=== PATIENT | male | born 1975 | race Caucasian/White ===

== ENCOUNTER 2019-12-18 23:48 | Emergency (ER) | payer MEDICAID, OTHER ==
[~2019-12-18] VITALS: Ht 170.2 cm; Wt 77.0 kg
[2019-12-19] MEDS ORDERED: KETOROLAC 30MG/ML VIAL IM ONE (00:30)
[2019-12-19 01:03] VITALS: BP 119/79
== END 2019-12-19 01:05 | disposition home or self-care (01) ==
LOC: ER 23:48
DX: G89.29 Other chronic pain (principal); M54.5 Low back pain; M19.90 Unspecified osteoarthritis, unspecified site; M51.36 Other intervertebral disc degeneration, lumbar region; F12.10 Cannabis abuse, uncomplicated; Z88.0 Allergy status to penicillin
CPT/HCPCS: 96372; 99283; J1885

== ENCOUNTER 2019-12-19 19:43 | Emergency (ER) | payer MEDICAID ==
[~2019-12-19] VITALS: Ht 165.1 cm; Wt 94.0 kg
[2019-12-19] MEDS ORDERED: KETOROLAC 30MG/ML VIAL IV STA (20:31)
[2019-12-19] MEDS ORDERED: SODIUM CHLORIDE 0.9% 1,000 ML IV ONE ×2 (20:31→23:00)
[2019-12-19 21:21] LABS: CHLORIDE 104 mEq/L (98-107)
[2019-12-19 21:26] LABS: ETHANOL BLOOD < 10 mg/dL
[2019-12-19] MEDS ORDERED: LORAZEPAM 0.5MG TABLET PO ONE (23:00)
[2019-12-19 23:43] LABS: BASOPHILS % 0.7 % (0.0-2.0); HEMATOCRIT. 42.6 % (42.0-52.0); HEMOGLOBIN. 14.7 g/dL (14.0-18.0); LYMPHOCYTES % 22.5 % (20.0-50.0); MEAN CORPUSCULAR HEMOGLOBIN 31.3 pg (28.0-32.0); MEAN CORPUSCULAR VOLUME 90.4 fL (80.0-94.0); MEAN PLATELET VOLUME 7.7 fl (7.4-10.4); MONOCYTES % 8.6 % (2.0-8.0); NEUTROPHILS % 66.2 % (40.0-76.0); PLATELET 211 x1000/uL (130-400); RED BLOOD CELL COUNT 4.71 mill/uL (4.7-6.1); RED CELL DISTRIBUTION WIDTH 13.3 % (11.6-14.6)
[2019-12-20 00:01] LABS: CLARITY URINE CLEAR (CLEAR); COLOR URINE YELLOW (YELLOW); KETONES URINE 1+ (NEGATIVE); LEUKOCYTE ESTERASE URINE NEGATIVE (NEGATIVE); NITRITE URINE NEGATIVE (NEGATIVE); OCCULT BLOOD URINE NEGATIVE (NEGATIVE); PROTEIN URINE NEGATIVE (NEGATIVE); SPECIFIC GRAVITY URINE 1.016 (1.005-1.030); UROBILINOGEN URINE 0.2 E.U./dL (0.2-1.0)
[2019-12-20 00:15] LABS: CANNABINOID URINE SCREEN PRESUMTIVE POSITIVE (NEGATIVE); OPIATES URINE SCREEN PRESUMTIVE POSITIVE (NEGATIVE)
[2019-12-20] MEDS ORDERED: ARIPIPRAZOLE 10MG TABLET PO ONE (00:15)
[2019-12-20 00:17] LABS: *AMPHETAMINES SCREEN URINE PRESUMTIVE POSITIVE (NEGATIVE); *BARBITURATES SCREEN URINE NEGATIVE (NEGATIVE); *BENZODIAZEPINES SCREEN URINE NEGATIVE (NEGATIVE); *COCAINE SCREEN URINE NEGATIVE (NEGATIVE)
[2019-12-20 00:18] LABS: METHADONE URINE SCREEN NEGATIVE (NEGATIVE); PHENCYCLIDINE URINE SCREEN NEGATIVE (NEGATIVE)
[2019-12-20] MEDS ORDERED: ARIPIPRAZOLE 5MG TABLET PO ONE (00:30)
[2019-12-20 01:40] VITALS: BP 121/74
== END 2019-12-20 01:41 | disposition home or self-care (01) ==
LOC: ER 19:43
DX: M54.5 Low back pain (principal); T43.621A Poisoning by amphetamines, accidental (unintentional), initial encounter; R44.3 Hallucinations, unspecified; F15.188 Other stimulant abuse with other stimulant-induced disorder; F12.90 Cannabis use, unspecified, uncomplicated; F11.10 Opioid abuse, uncomplicated; F16.10 Hallucinogen abuse, uncomplicated; Y92.89 Other specified places as the place of occurrence of the external cause
CPT/HCPCS: 36415; 80053; 80305; 80320; 81003; 83605; 84443; 85025; 85610; 85651; 87040; 96374; 99283; J1885; J7030; G0480

== ENCOUNTER 2019-12-20 15:43 | Emergency (ER) | payer MEDICAID ==
[~2019-12-20] VITALS: Ht 165.1 cm; Wt 94.0 kg
[2019-12-20 16:07] VITALS: BP 122/85
== END 2019-12-20 22:37 | disposition left against medical advice (07) ==
LOC: ER 15:43
DX: Z53.21 Procedure and treatment not carried out due to patient leaving prior to being seen by health care provider (principal)

== ENCOUNTER 2022-07-29 14:11 | Emergency (ER) | payer MEDICAID, OTHER ==
[~2022-07-29] VITALS: Ht 167.6 cm; Wt 91.0 kg
[2022-07-29] MEDS ORDERED: ACETAMINOPHEN 325MG TABLET PO ONE (16:15)
[2022-07-29 17:26] VITALS: BP 123/65
== END 2022-07-29 17:30 | disposition home or self-care (01) ==
LOC: ER 14:11
DX: S60.222A Contusion of left hand, initial encounter (principal); X58.XXXA Exposure to other specified factors, initial encounter; Z72.89 Other problems related to lifestyle; Y93.89 Activity, other specified; Y92.89 Other specified places as the place of occurrence of the external cause
CPT/HCPCS: 73130; 99283

== ENCOUNTER 2022-08-02 19:45 | Emergency (ER) | payer OTHER ==
[~2022-08-02] VITALS: Ht 167.6 cm; Wt 88.0 kg
[2022-08-02] MEDS ORDERED: HYDROCODONE/ACETAMINOPHEN 5/325MG TABLET PO ONE (22:30)
[2022-08-02] MEDS ORDERED: CLINDAMYCIN 600MG PREMIX 50 ML IV NR (23:39)
[2022-08-02] MEDS ORDERED: CLINDAMYCIN 600 MG in DEXTROSE 5% WATER 50 ML IV ONE (23:45)
[2022-08-02] MEDS ORDERED: CLIN-194 MT (23:59)
[2022-08-03] MEDS ORDERED: CLINDAMYCIN HCL 150MG CAPSULE PO SCH
[2022-08-03 01:08] VITALS: BP 112/75
== END 2022-08-03 00:17 | disposition home or self-care (01) ==
LOC: ER 19:45
DX: L03.114 Cellulitis of left upper limb (principal); M19.90 Unspecified osteoarthritis, unspecified site; F41.9 Anxiety disorder, unspecified; F20.9 Schizophrenia, unspecified; Z88.0 Allergy status to penicillin
CPT/HCPCS: 73130; 99283; J3490; J7060

== ENCOUNTER 2022-08-04 13:06 | Emergency (ER) | payer OTHER ==
[~2022-08-04 13:06] MED LIST: CLIN-194 MT
== END 2022-08-04 13:52 | disposition left against medical advice (07) ==
LOC: ER 13:36
DX: Z53.21 Procedure and treatment not carried out due to patient leaving prior to being seen by health care provider (principal)

== ENCOUNTER 2022-08-08 18:07 | Emergency (ER) | payer OTHER ==
[~2022-08-08] VITALS: Ht 167.6 cm; Wt 91.0 kg
[2022-08-08 18:25] VITALS: BP 139/94
== END 2022-08-08 20:00 | disposition left against medical advice (07) ==
LOC: ER 18:07
DX: Z53.21 Procedure and treatment not carried out due to patient leaving prior to being seen by health care provider (principal)

== ENCOUNTER 2022-09-19 12:36 | Emergency (ER) | payer OTHER ==
[~2022-09-19] VITALS: Ht 167.6 cm; Wt 82.0 kg
[2022-09-19 12:43] VITALS: BP 164/96
[2022-09-19] MEDS ORDERED: CLOT45CR62 VG ×2 (16:34)
[2022-09-19] MEDS ORDERED: CLIN-194 MT (16:34)
[2022-09-19] MEDS ORDERED: CLOT15CR27 TP (16:34)
[2022-09-19] MEDS ORDERED: TOPUD PO (16:42)
[2022-09-19] MEDS ORDERED: IBUP-2028 MT (16:42)
== END 2022-09-19 17:07 | disposition home or self-care (01) ==
LOC: ER 12:36
DX: B35.3 Tinea pedis (principal); F41.9 Anxiety disorder, unspecified; M19.90 Unspecified osteoarthritis, unspecified site; F20.9 Schizophrenia, unspecified; Z88.0 Allergy status to penicillin
CPT/HCPCS: 99283

== ENCOUNTER 2022-10-06 13:15 | Emergency (ER) | payer OTHER ==
[~2022-10-06] VITALS: Ht 167.6 cm; Wt 81.0 kg
[~2022-10-06 13:15] MED LIST changes: +CLOT15CR27 TP; +IBUP-2028 MT; +TOPUD PO
[2022-10-06] MEDS ORDERED: NAPR500T7 MT (15:24)
[2022-10-06] MEDS ORDERED: ACET-2708 MT (15:24)
[2022-10-06] MEDS ORDERED: IBUPROFEN 800MG TABLET PO ONE (15:30)
[2022-10-06 15:34] VITALS: BP 110/60
== END 2022-10-06 15:38 | disposition home or self-care (01) ==
LOC: ER 13:27
DX: S39.012A Strain of muscle, fascia and tendon of lower back, initial encounter (principal); W18.39XA Other fall on same level, initial encounter; Y93.89 Activity, other specified; Y92.89 Other specified places as the place of occurrence of the external cause; Y99.8 Other external cause status; F41.9 Anxiety disorder, unspecified; F20.9 Schizophrenia, unspecified; Z79.899 Other long term (current) drug therapy; Z88.0 Allergy status to penicillin
CPT/HCPCS: 99282

== ENCOUNTER 2022-11-23 08:25 | Emergency (ER) | payer MEDICAID, OTHER ==
[~2022-11-23] VITALS: Ht 167.6 cm; Wt 85.0 kg
[~2022-11-23 08:25] MED LIST changes: +ACET-2708 MT; +NAPR500T7 MT
[2022-11-23 08:36] VITALS: BP 136/85
[2022-11-23] MEDS ORDERED: HYDROCODONE/ACETAMINOPHEN 5/325MG TABLET PO ONE (10:00)
[2022-11-23] MEDS ORDERED: PREDNISONE 20MG TABLET PO ONE (10:00)
[2022-11-23] MEDS ORDERED: KETOROLAC 60MG/2ML VIAL IM ONE (10:00)
[2022-11-23] MEDS ORDERED: NAPR500T7 MT (10:52)
[2022-11-23] MEDS ORDERED: P20 MT (10:52)
== END 2022-11-23 11:27 | disposition home or self-care (01) ==
LOC: ER 08:25
DX: G89.29 Other chronic pain (principal); M54.50 Low back pain, unspecified; M62.838 Other muscle spasm; F41.9 Anxiety disorder, unspecified; F20.9 Schizophrenia, unspecified; M19.90 Unspecified osteoarthritis, unspecified site; Z88.0 Allergy status to penicillin
CPT/HCPCS: 96372; 99283; J1885; J7512

== ENCOUNTER 2022-11-28 16:42 | Emergency (ER) | payer MEDICAID ==
[~2022-11-28] VITALS: Ht 167.6 cm; Wt 83.4 kg
[~2022-11-28 16:42] MED LIST changes: +P20 MT
[2022-11-28 16:49] VITALS: BP 136/84
[2022-11-28] MEDS ORDERED: NAPR-677 MT (17:53)
[2022-11-28] MEDS ORDERED: LIDO700A30 TP (17:53)
[2022-11-28] MEDS ORDERED: KETOROLAC 60MG/2ML VIAL IM ONE (20:00)
== END 2022-11-28 20:23 | disposition home or self-care (01) ==
LOC: ER 16:42
DX: G89.29 Other chronic pain (principal); M54.50 Low back pain, unspecified; F20.9 Schizophrenia, unspecified; M19.90 Unspecified osteoarthritis, unspecified site; F41.9 Anxiety disorder, unspecified; Z86.19 Personal history of other infectious and parasitic diseases; Z88.0 Allergy status to penicillin
CPT/HCPCS: 99281; J1885

== ENCOUNTER 2022-12-20 23:57 | Emergency (ER) | payer MEDICAID ==
[~2022-12-20] VITALS: Ht 165.1 cm; Wt 83.5 kg
[~2022-12-20 23:57] MED LIST changes: +LIDO700A30 TP; +NAPR-677 MT
[2022-12-21 00:11] VITALS: BP 145/96
[2022-12-21] MEDS ORDERED: RISPERIDONE 1MG TABLET PO STA (01:41)
[2022-12-21] MEDS ORDERED: DEXAMETHASONE 4MG TABLET PO ONE (01:45)
[2022-12-21] MEDS ORDERED: KETOROLAC 60MG/2ML VIAL IM ONE (01:45)
[2022-12-21] MEDS ORDERED: CYCL10TA21 MT (01:47)
[2022-12-21] MEDS ORDERED: NAPR500T7 MT (01:47)
== END 2022-12-21 02:00 | disposition home or self-care (01) ==
LOC: ER 23:57
DX: M54.50 Low back pain, unspecified (principal); G89.29 Other chronic pain; M54.30 Sciatica, unspecified side; F41.9 Anxiety disorder, unspecified; M19.90 Unspecified osteoarthritis, unspecified site; F20.9 Schizophrenia, unspecified; Z87.828 Personal history of other (healed) physical injury and trauma; Z88.0 Allergy status to penicillin
CPT/HCPCS: 99281; J1885; J8540

== ENCOUNTER 2023-02-24 16:46 | Emergency (ER) | payer MEDICAID, OTHER ==
[~2023-02-24] VITALS: Ht 165.1 cm; Wt 88.0 kg
[~2023-02-24 16:46] MED LIST changes: +CYCL10TA21 MT
[2023-02-24] MEDS ORDERED: DEXAMETHASONE 4MG/ML 1ML VIAL IM ONE (19:30)
[2023-02-24] MEDS ORDERED: KETOROLAC 30MG/ML VIAL IM ONE (19:30)
[2023-02-24] MEDS ORDERED: CYCLOBENZAPRINE 10MG TABLET PO ONE (19:30)
[2023-02-24 20:42] VITALS: BP 152/80
== END 2023-02-24 21:50 | disposition home or self-care (01) ==
LOC: ER 16:46
DX: M54.59 Other low back pain (principal)
CPT/HCPCS: 96372; 99284; J1100; J1885; Z7610

== ENCOUNTER 2023-04-09 15:51 | Emergency (ER) | payer MEDICAID, OTHER ==
[~2023-04-09] VITALS: Ht 167.6 cm; Wt 100.0 kg
[2023-04-09 16:16] VITALS: BP 137/73
[2023-04-09] MEDS ORDERED: GABA-532 MT (16:59)
[2023-04-09] MEDS ORDERED: DICL75TA5 MT (16:59)
[2023-04-09] MEDS ORDERED: KETOROLAC 60MG/2ML VIAL IM ONE (17:00)
[2023-04-09] MEDS ORDERED: HYDROCODONE/ACETAMINOPHEN 5/325MG TABLET PO ONE (17:00)
== END 2023-04-09 17:48 | disposition home or self-care (01) ==
LOC: ER 15:51
DX: M54.50 Low back pain, unspecified (principal); Z88.0 Allergy status to penicillin; Z79.899 Other long term (current) drug therapy; Z86.59 Personal history of other mental and behavioral disorders; Z98.890 Other specified postprocedural states
CPT/HCPCS: 99283

== ENCOUNTER 2023-06-04 22:06 | Emergency (ER) | payer MEDICAID, OTHER ==
[~2023-06-04] VITALS: Ht 165.1 cm; Wt 83.0 kg
[~2023-06-04 22:06] MED LIST changes: +DICL75TA5 MT; +GABA-532 MT
[2023-06-04 22:46] VITALS: BP 113/73; PULSE 82; RESP 17; TEMP 97.9; O2SAT 97
[2023-06-05] MEDS ORDERED: KETOROLAC 30MG/ML VIAL IM ONE (00:15)
[2023-06-05] MEDS ORDERED: NAPR-677 MT (01:16)
== END 2023-06-05 09:00 | disposition home or self-care (01) ==
LOC: ER 22:06
DX: S70.01XA Contusion of right hip, initial encounter (principal); F12.10 Cannabis abuse, uncomplicated; Z98.890 Other specified postprocedural states; V19.9XXA Pedal cyclist (driver) (passenger) injured in unspecified traffic accident, initial encounter; Y93.89 Activity, other specified; Y92.89 Other specified places as the place of occurrence of the external cause; Y99.8 Other external cause status; Z88.0 Allergy status to penicillin; Z86.59 Personal history of other mental and behavioral disorders
CPT/HCPCS: 99283; 73522; J1885

== ENCOUNTER 2023-08-07 15:12 | Emergency (ER) | payer MEDICAID, OTHER ==
[~2023-08-07] VITALS: Ht 165.1 cm; Wt 79.5 kg
[2023-08-07 15:32] VITALS: BP 100/74; PULSE 65; TEMP 97.7; O2SAT 100
[2023-08-07] MEDS ORDERED: KETOROLAC 30MG/ML VIAL IM ONE (16:00)
[2023-08-07] MEDS ORDERED: HYDROCODONE/ACETAMINOPHEN 5/325MG TABLET PO ONE (16:00)
== END 2023-08-07 21:06 | disposition left against medical advice (07) ==
LOC: ER 15:12
DX: M54.50 Low back pain, unspecified (principal); Z88.0 Allergy status to penicillin; Z86.59 Personal history of other mental and behavioral disorders
CPT/HCPCS: 99281

== ENCOUNTER 2023-08-11 19:21 | Emergency (ER) | payer OTHER ==
[~2023-08-11] VITALS: Ht 165.1 cm; Wt 79.3 kg
[2023-08-11 19:27] VITALS: BP 127/82; PULSE 80; RESP 16; TEMP 98.7; O2SAT 98
[2023-08-11] MEDS ORDERED: HYDR99LO MT (19:45)
== END 2023-08-11 20:42 | disposition home or self-care (01) ==
LOC: ER 19:21
DX: L74.3 Miliaria, unspecified (principal); F12.90 Cannabis use, unspecified, uncomplicated; F41.9 Anxiety disorder, unspecified; M19.90 Unspecified osteoarthritis, unspecified site; F20.9 Schizophrenia, unspecified; Z79.899 Other long term (current) drug therapy; Z88.0 Allergy status to penicillin
CPT/HCPCS: 99282

== ENCOUNTER 2023-08-20 11:20 | Emergency (ER) | payer OTHER ==
[~2023-08-20] VITALS: Ht 165.1 cm; Wt 79.0 kg
[~2023-08-20 11:20] MED LIST changes: +HYDR99LO MT
[2023-08-20 11:52] VITALS: BP 112/79; TEMP 98.4; O2SAT 100
[2023-08-20 11:59] VITALS: PULSE 99; RESP 20
[2023-08-24] MEDS ORDERED: LIDO700A30 TP (17:46)
[2023-08-24] MEDS ORDERED: METH-653 MT (17:46)
[2023-08-24] MEDS ORDERED: IBUP-2029 MT (17:46)
[2023-08-24] MEDS ORDERED: RISP2TAB85 MT (19:34)
== END 2023-08-20 18:04 | disposition left against medical advice (07) ==
LOC: ER 11:20
DX: Z53.21 Procedure and treatment not carried out due to patient leaving prior to being seen by health care provider (principal)
CPT/HCPCS: 99281